=== PATIENT | male | born 1990 | race Caucasian/White ===

== ENCOUNTER 2017-02-14 13:48 | Emergency (ER) | payer MEDICAID, OTHER ==
[2017-02-14 13:59] VITALS: TEMP 98.4
[2017-02-14 15:22] VITALS: BP 119/73; PULSE 91; RESP 16; O2SAT 94
--- NOTE | 2017-02-14 15:37 | EDPHY ---
H & P Stated Complaint: Abcess from Vivitrol Time Seen by Provider: 02/14/17 15:07 HPI/ROS: CHIEF COMPLAINT: Concerned about possible abscess Vivitrol use HISTORY OF PRESENT ILLNESS: The patient presents to the ED with concerns about possibility of an abscess to his right gluteal area. The patient reportedly had a Vivitrol injection done 2 weeks ago. He has had some tenderness and mild erythema since that time. He denies fever. He denies additional complaints. The patient denies history of IV drug use. He has no complaints of additional redness, swelling or tenderness. The patient has no history of diabetes or immunosuppression. REVIEW OF SYSTEMS: A comprehensive 10 point review of systems is otherwise negative aside from elements mentioned in the history of present illness. Source: Patient Exam Limitations: No limitations - Personal History Current Tetanus/Diphtheria Vaccine: Yes - Medical/Surgical History Other PMH: Otherwise health - Social History Smoking Status: Current every day smoker - Physical Exam Exam: General Appearance: Alert, no distress Eyes: Pupils equal and round no pallor or injection ENT, Mouth: Mucous membranes moist Respiratory: There are no retractions, lungs are clear to auscultation Cardiovascular: Regular rate and rhythm Gastrointestinal: Abdomen is soft and nontender, no masses, bowel sounds normal Neurological: A&O, normal motor function, normal sensory exam, normal cranial nerves Skin: Minimal tenderness noted to the right gluteal area, no fluctuance, no swelling, no evidence of abscess or necrotizing fasciitis Musculoskeletal: Neck is supple nontender Extremities: symmetrical, full range of motion Psychiatric: Patient is oriented X 3, there is no agitation Constitutional: Initial Vital Signs Temperature (C) 36.9 C 02/14/17 13:57 Heart Rate 95 02/14/17 13:57 Respiratory Rate 18 02/14/17 13:57 Blood Pressure 125/75 H 02/14/17 13:57 O2 Sat (%) 96 02/14/17 13:57 O2 Delivery Mode Room Air Allergies/Adverse Reactions: No Known Allergies Allergy (Unverified 02/01/10 19:44) Home Medications: Medication Instructions Recorded NO HOME MEDS 02/01/10 Sulfamethox/Tmp 800/160 mg 1 tab PO BID #20 tab 02/14/17 [Bactrim DS] Vivitrol 02/14/17 Medical Decision Making ED Course/Re-evaluation: The patient has a mild cellulitis to his right gluteal area. There is no clinical evidence of an abscess or necrotizing fasciitis at this point time. The patient will be discharged home with a prescription for Bactrim. The patient is given customary aftercare instructions and return precautions. Differential Diagnosis: Differential diagnosis considered includes cellulitis, abscess, necrotizing fasciitis Departure - Departure Disposition: Home, Routine, Self-Care Clinical Impression: Cellulitis Condition: Good Instructions: Cellulitis (ED) Additional Instructions: 1. Please take antibiotics as directed. 2. Return to the ED for increasing pain, redness, fever or swelling. 3. Follow up with your primary care provider as needed Prescriptions: Sulfamethox/Tmp 800/160 mg [Bactrim DS] 1 tab PO BID #20 tab
== END 2017-02-14 15:27 | disposition home or self-care (01) ==
DX: L03.317 Cellulitis of buttock (principal); F17.200 Nicotine dependence, unspecified, uncomplicated

== ENCOUNTER 2017-05-31 01:41 | Emergency (ER) | payer MEDICAID ==
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
[2017-05-31 07:19] VITALS: BP 140/82; PULSE 70; RESP 16; TEMP 98.2; O2SAT 95
== END 2017-05-31 07:20 | disposition home or self-care (01) ==
LOC: EDUNIT#
DX: S02.641A Fracture of ramus of right mandible, initial encounter for closed fracture (principal); V18.2XXA Unspecified pedal cyclist injured in noncollision transport accident in nontraffic accident, initial encounter; F10.920 Alcohol use, unspecified with intoxication, uncomplicated; F17.200 Nicotine dependence, unspecified, uncomplicated

== ENCOUNTER 2017-06-07 09:33 | Day surgery (SDC) | payer MEDICAID ==
[~2017-06-07 09:33] MED LIST: CLINDAMYCIN 900 MG/DEXTROSE 50 ML IV ONE; OXYMETAZOLINE 30 ML NASAL SPRAY EACHNARE ONE
[2017-06-07] MEDS ORDERED: LIDOCAINE 1% 2 ML INJ ID PRN (09:38)
[2017-06-07] MEDS ORDERED: LR 1,000 ML IV ONE (09:38)
[2017-06-07] MEDS ORDERED: LIDOCAINE 1% 2 ML INJ ONE (09:43)
[2017-06-07 10:11] VITALS: PULSE 60
[2017-06-07] MEDS ORDERED: MIDAZOLAM 2 MG/2 ML VIAL IVP ONE (10:13)
--- NOTE | 2017-06-07 10:15 | PDANEPAE ---
ANE History of Present Illness mandible fracture ANE Past Medical History - Cardiovascular History Hx Hypertension: No Hx Arrhythmias: No Hx Chest Pain: No Hx Coronary Artery / Peripheral Vascular Disease: No Hx CHF / Valvular Disease: No Hx Palpitations: No - Pulmonary History Hx COPD: No Hx Asthma/Reactive Airway Disease: No Hx Recent Upper Respiratory Infection: No Hx Oxygen in Use at Home: No Hx Sleep Apnea: No Sleep Apnea Screening Result - Last Documented: Negative - Neurologic History Hx Cerebrovascular Accident: No Hx Seizures: No Hx Dementia: No - Endocrine History Hx Diabetes: No - Renal History Hx Renal Disorders: No - Liver History Hx Hepatic Disorders: No - Neurological & Psychiatric Hx Hx Neurological and Psychiatric Disorders: No - Cancer History Hx Cancer: No - Congenital Disorder History Hx Congenital Disorders: No - GI History Hx Gastrointestinal Disorders: No - Other Health History Other Health History: none - Chronic Pain History Chronic Pain: No - Surgical History Prior Surgeries: none ANE Review of Systems Review of Systems: - Exercise capacity METS (RN): 4 METS ANE Patient History - Allergies Allergies/Adverse Reactions: No Known Allergies Allergy (Unverified 05/31/17 01:42) - Home Medications Home Medications: NO HOME MEDS 02/01/10 [Last Taken Unknown] Vivitrol 02/14/17 [Last Taken Unknown] - NPO status NPO Since - Liquids (Date): 06/07/17 NPO Since - Liquids (Time): 08:00 NPO Since - Solids (Date): 06/06/17 NPO Since - Solids (Time): 22:00 - Smoking Hx Smoking Status: Current every day smoker - Family Anes Hx Family Hx Anesthesia Complications: none ANE Labs/Vital Signs - Vital Signs Blood Pressure: 121/78 Heart Rate: 60 Respiratory Rate: 16 O2 Sat (%): 98 Height: 195.58 cm Weight: 72.575 kg ANE Physical Exam - Airway Neck exam: FROM Mallampati Score: Class 3 Mouth exam: small mouth opening - Pulmonary Pulmonary: no respiratory distress - Cardiovascular Cardiovascular: regular rate and rhythym - ASA Status ASA Status: II
[2017-06-07] MEDS ORDERED: methylPREDNISolone SOD SUCC 125 MG/2 ML VIAL ONE (10:20)
[2017-06-07] MEDS ORDERED: LIDO/EPI 2%** Not for Epidural 20 ML MDV ONE (10:20)
[2017-06-07] MEDS ORDERED: DEXAMETHASONE 4 MG/ML VIAL ONE ×2 (10:20→10:47)
[2017-06-07] MEDS ORDERED: BACITRACIN 50,000 UNITS/10 ML SYR IRR ONE (10:21)
[2017-06-07] MEDS ORDERED: CHLORHEXIDINE GLUCONATE 15 ML UDL ONE ×2 (10:21→13:38)
[2017-06-07] MEDS ORDERED: POLYMYXIN B SULFATE 500,000 UNIT/10 ML SYR IRR ONE (10:21)
[2017-06-07] MEDS ORDERED: PETROLAT,WHT/MIN OIL/SOD CHL 3.5 GM OPHT.OINT ONE (10:22)
--- NOTE | 2017-06-07 10:43 | PDHPUP ---
History & Physical Update H&P update statement: This history and physical update is based on an assessment of the patient which was completed after admission or registration (within 24 hours), but prior to the surgery/procedure. H&P update: H&P reviewed & patient examined (no changes)
[2017-06-07] MEDS ORDERED: LIDOCAINE 2% 5 ML SDV ONE (10:47)
[2017-06-07] MEDS ORDERED: HYDROmorphONE/DILAUDID 2 MG/ML INJ ONE (10:47)
[2017-06-07] MEDS ORDERED: fentaNYL 100 MCG/2 ML INJ ONE ×4 (10:47→12:52)
[2017-06-07] MEDS ORDERED: ROCURONIUM 50 MG/5 ML VIAL ONE (10:47)
[2017-06-07] MEDS ORDERED: PROPOFOL 200 MG/20 ML VIAL ONE ×2 (10:47→11:19)
[2017-06-07] MEDS ORDERED: ONDANSETRON 4 MG/2 ML VIAL IVP PRN (12:05)
[2017-06-07] MEDS ORDERED: PROMETHAZINE HCL 25 MG/ML INJ IVP PRN (12:05)
[2017-06-07] MEDS ORDERED: NALOXONE HCL 0.4 MG/ML INJ IVP PRN (12:05)
[2017-06-07] MEDS ORDERED: fentaNYL 100 MCG/2 ML INJ IVP PRN (12:05)
[2017-06-07] MEDS ORDERED: LABETALOL HCL 5 MG/ML 20 ML MDV ONE (14:03)
[2017-06-07] MEDS ORDERED: LABETALOL HCL 50 MG/10 ML SYR IVP ONE (14:04)
[2017-06-07] MEDS: HYDROmorphONE/DILAUDID 1 MG/ML INJ IVP PRN ×5 (14:04→15:09)
--- NOTE | 2017-06-07 14:05 | POSTANESTH ---
Post Anesthetic Evaluation Cardiovascular Status: Normal, Stable Respiratory Status: Normal, Stable Level of Consciousness/Mental Status: Can Participate in Eval Pain Control: Adequate, Prn Tx Ordered Nausea/Vomiting Control: Adequate, Prn Tx Ordered Complications Possibly Related to Anesthesia: None Noted
[2017-06-07] MEDS ORDERED: HYDROmorphONE/DILAUDID 1 MG/ML INJ ONE ×3 (14:07→15:07)
[2017-06-07 16:26] VITALS: BP 153/102; RESP 16
[2017-06-07 16:39] VITALS: TEMP 97.2; O2SAT 96
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
== END 2017-06-07 16:22 | disposition home or self-care (01) ==
LOC: FSGY 09:33
PROVIDERS: ATTEND Otolaryngology
PROC: 0NST04Z Reposition Right Mandible with Internal Fixation Device, Open Approach (ICD-10-PCS; principal; 2017-06-07 10:30)
DX: S02.641A Fracture of ramus of right mandible, initial encounter for closed fracture (principal); S02.66XA Fracture of symphysis of mandible, initial encounter for closed fracture; V18.4XXA Pedal cycle driver injured in noncollision transport accident in traffic accident, initial encounter; Y99.8 Other external cause status
CPT/HCPCS: C1713; J1100; J1170; J2250; J2704; J3010; J3490

== ENCOUNTER 2017-08-17 08:49 | Day surgery (SDC) | payer MEDICAID ==
[2017-08-17] MEDS ORDERED: LR 1,000 ML IV ONE (09:07)
[2017-08-17] MEDS ORDERED: LIDOCAINE 1% 2 ML INJ ID PRN (09:07)
[2017-08-17] MEDS ORDERED: ceFAZolin 2 GM/SWFI 2 GM/20 ML SYR IVP ONE (10:05)
--- NOTE | 2017-08-17 10:06 | PDHPUP ---
History & Physical Update H&P update statement: This history and physical update is based on an assessment of the patient which was completed after admission or registration (within 24 hours), but prior to the surgery/procedure. H&P update: no change in patient's condition since H&P completed
[2017-08-17] MEDS ORDERED: MIDAZOLAM 2 MG/2 ML VIAL IVP ONE (10:10)
[2017-08-17] MEDS ORDERED: CHLORHEXIDINE GLUCONATE 15 ML UDL ONE (10:11)
--- NOTE | 2017-08-17 10:12 | PDANEPAE ---
ANE History of Present Illness 27 year old with arch bars ANE Past Medical History - Cardiovascular History Hx Hypertension: No Hx Arrhythmias: No Hx Chest Pain: No Hx Coronary Artery / Peripheral Vascular Disease: No Hx CHF / Valvular Disease: No Hx Palpitations: No - Pulmonary History Hx COPD: No Hx Asthma/Reactive Airway Disease: No Hx Recent Upper Respiratory Infection: No Hx Oxygen in Use at Home: No Hx Sleep Apnea: No Sleep Apnea Screening Result - Last Documented: Negative - Neurologic History Hx Cerebrovascular Accident: No Hx Seizures: No Hx Dementia: No - Endocrine History Hx Diabetes: No - Renal History Hx Renal Disorders: No - Liver History Hx Hepatic Disorders: No - Neurological & Psychiatric Hx Hx Neurological and Psychiatric Disorders: No - Cancer History Hx Cancer: No - Congenital Disorder History Hx Congenital Disorders: No - GI History Hx Gastrointestinal Disorders: No - Other Health History Other Health History: none - Chronic Pain History Chronic Pain: No - Surgical History Prior Surgeries: 06/07/17 ORIF mandible with [place] ANE Review of Systems Review of systems is: negative Review of Systems: - Exercise capacity METS (RN): 4 METS ANE Patient History - Allergies Allergies/Adverse Reactions: No Known Allergies Allergy (Unverified 05/31/17 01:42) - NPO status NPO Status: no food or drink >8 hours NPO Since - Liquids (Date): 08/16/17 NPO Since - Liquids (Time): 23:00 NPO Since - Solids (Date): 08/16/17 NPO Since - Solids (Time): 23:00 - Anes Hx Anes Hx: no prior problems - Smoking Hx Smoking Status: Current every day smoker - Alcohol Use Alcohol Use: Other (2/week) - Family Anes Hx Family Hx Anesthesia Complications: none ANE Labs/Vital Signs - Vital Signs Blood Pressure: 122/71 Heart Rate: 72 Respiratory Rate: 18 O2 Sat (%): 97 Height: 195.58 cm Weight: 72.575 kg
[2017-08-17] MEDS ORDERED: PROPOFOL/EMULSION 500 MG/50 ML BOTTLE IV ONE (10:26)
[2017-08-17] MEDS ORDERED: PROPOFOL 200 MG/20 ML VIAL ONE (10:26)
[2017-08-17] MEDS ORDERED: fentaNYL 100 MCG/2 ML INJ ONE (10:26)
[2017-08-17] MEDS ORDERED: LIDOCAINE 2% 100 MG/5 ML SYR ONE (10:33)
[2017-08-17] MEDS ORDERED: LIDO/EPI 2% **for epidural** 20 ML SDV ONE (10:34)
[2017-08-17] MEDS ORDERED: fentaNYL 100 MCG/2 ML INJ IVP PRN (10:56)
[2017-08-17] MEDS ORDERED: PROMETHAZINE HCL 25 MG/ML INJ IVP PRN (10:56)
[2017-08-17] MEDS ORDERED: ONDANSETRON 4 MG/2 ML VIAL IVP PRN (10:56)
[2017-08-17] MEDS ORDERED: NALOXONE HCL 0.4 MG/ML INJ IVP PRN (10:56)
--- NOTE | 2017-08-17 10:58 | POSTANESTH ---
Post Anesthetic Evaluation Cardiovascular Status: Normal, Stable Respiratory Status: Normal, Stable Level of Consciousness/Mental Status: Can Participate in Eval, Alert and Oriented Pain Control: Adequate, Prn Tx Ordered Nausea/Vomiting Control: Adequate, Prn Tx Ordered Complications Possibly Related to Anesthesia: None Noted
[2017-08-17 11:20] VITALS: O2SAT 98
[2017-08-17 11:25] VITALS: TEMP 98.4
[2017-08-17 11:35] VITALS: BP 96/86; PULSE 74; RESP 14
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
== END 2017-08-17 11:47 | disposition home or self-care (01) ==
LOC: FSGY 08:49
PROVIDERS: ATTEND Otolaryngology
PROC: 0NP Head and Facial Bones, Removal (ICD-10-PCS; principal; 2017-08-17 10:15)
DX: S02.642A Fracture of ramus of left mandible, initial encounter for closed fracture (principal); S02.66XA Fracture of symphysis of mandible, initial encounter for closed fracture; V18.4XXA Pedal cycle driver injured in noncollision transport accident in traffic accident, initial encounter
CPT/HCPCS: J0690; J2001; J2250; J2704; J3010